=== PATIENT | female | born 1970 | race Caucasian/White ===

== ENCOUNTER → 2017-01-09 | Outpatient (REF) | payer BC ==
[2017-01-09 14:36] LABS: FOLATE > 24.0 NG/ML (>5.4); VITAMIN B12 LEVEL 496 PG/ML (247-911)
[2017-01-09 14:41] LABS: TOTAL PROTEIN 7.2 GM/DL (6.4-8.2)
[2017-01-11 10:50] LABS: ALBUMIN 4.24 GM/DL (3.29-5.55); ALBUMIN % 58.9 % (55.8-66.1); GAMMA GLOBULIN % 16.1 % (11.1-18.8)
[2017-01-12 08:09] LABS: Lyme Disease IgG/IgM Antibodie <0.91 ISR (0.00-0.90); Lyme Disease IgM Ab Quantitati <0.80 index (0.00-0.79); VITAMIN E LEVEL 12.8 mg/L (5.3-16.8)
== END ==
LOC: M LABNEURO 10:19
PROVIDERS: ATTEND Psychiatry & Neurology Neurology
DX: G62.9 Polyneuropathy, unspecified (principal)

== ENCOUNTER → 2017-01-12 | Outpatient (CLI) | payer BC ==
--- NOTE | 2017-01-12 17:37 | REPMRS ---
Patient History The patient states she had a clinical breast exam in Patient is nulliparous. Family history of colorectal cancer in maternal grandfather at age 50 or over. Benign stereotatic breast biopsy of the right breast, December 14, 2010. Digital Woman Screen Mammo: January 12, 2017 - Exam #: [id number] Bilateral CC and MLO view(s) were taken. Technologist: Mattie Ramirez, Technologist Prior study comparison: December 27, 2015, digital woman screen mammo performed at [facility]. December 25, 2014, digital woman screen mammo performed at [facility]. FINDINGS: The breast tissue is heterogeneously dense. This may lower the sensitivity of mammography. There has been no change in the appearance of the mammogram from the prior studies. There is a moderate amount of residual fibroglandular tissue which is fairly symmetric. There is no interval development of dominant mass, areas of architectural distortion, or clustered microcalcification typical of malignancy. ASSESSMENT: BI-RADS/ACR category 1 mammogram. Negative. Recommendation Routine screening mammogram in 1 year (for women over age 40). This mammogram was interpreted with the aid of an FDA-approved computer-aided dectection system. Electronically Signed By: Ismael Collins MD 01/12/17 [id number]
== END ==
LOC: M WHC 15:12
PROVIDERS: ATTEND Nurse Practitioner Family
DX: Z12.31 Encounter for screening mammogram for malignant neoplasm of breast (principal)

== ENCOUNTER → 2018-04-04 | Outpatient (CLI) | payer BC | LOC: M WHC 15:03 | DX: Z12.31 Encounter for screening mammogram for malignant neoplasm of breast (principal) | CPT/HCPCS: 77067 ==

== ENCOUNTER → 2020-02-17 | Outpatient (CLI) | payer BC ==
[2020-02-17 13:24] LABS: INFLUENZA A AMPLIFICATION NEGATIVE (NEGATIVE); INFLUENZA B AMPLIFICATION NEGATIVE (NEGATIVE)
== END ==
LOC: M LABSMTC 11:19
PROVIDERS: ATTEND Family Medicine
DX: Z11.59 Encounter for screening for other viral diseases (principal); Z20.828 Contact with and (suspected) exposure to other viral communicable diseases
CPT/HCPCS: 87502; U0002

== ENCOUNTER → 2020-03-04 | Outpatient (CLI) | payer BC | LOC: M LABSMTC 13:47 | PROVIDERS: ATTEND Family Medicine | DX: Z11.59 Encounter for screening for other viral diseases (principal); Z20.828 Contact with and (suspected) exposure to other viral communicable diseases ==

== ENCOUNTER → 2020-03-23 | Outpatient (REF) | payer BC ==
[2020-03-23 15:14] LABS: C REACTIVE PROTEIN QUANTITATIV < 0.30 MG/DL (0.00-0.30); RHEUMATOID FACTOR QUANT < 10.0 IU/ML (<15.0)
[2020-03-23 15:18] LABS: BASO # 0.1 10^3/uL (0.0-0.2); BASO % 0.7 % (0.0-1.0); EOS # 0.3 10^3/uL (0.0-0.5); EOS % 4.1 % (0.0-3.0); HEMATOCRIT 44.6 % (36.0-47.0); HEMOGLOBIN 14.4 g/dl (12.0-15.5); LYMPH # 2.3 10^3/uL (1.5-5.0); LYMPH % 32.8 % (24.0-44.0); MEAN CORPUSCULAR HEMOGLOBIN 30.3 pg (27.0-33.0); MEAN CORPUSCULAR HGB CONC 32.3 g/dl (32.0-36.5); MEAN CORPUSCULAR VOLUME 93.7 fl (80.0-96.0); MONO # 0.5 10^3/uL (0.0-0.8); MONO % 6.7 % (0.0-5.0); NEUTROPHILS # 3.8 10^3/uL (1.5-8.5); NEUTROPHILS % 55.4 % (36.0-66.0); PLATELET COUNT, AUTOMATED 283 10^3/uL (150-450); RED BLOOD COUNT 4.76 10^6/uL (4.00-5.40); WHITE BLOOD COUNT 6.9 10^3/uL (4.0-10.0)
[2020-03-23 16:08] LABS: ERYTHROCYTE SEDIMENTATION RATE 7 mm/hr (0-30)
[2020-03-25 06:50] LABS: ANA (HEP2) Negative (.); CYCLIC CITRULLINATED PEPTIDE 10 units (0-19); SSA SJOGRENS A <0.2 AI (0.0-0.9); SSB SJOGRENS B 0.8 AI (0.0-0.9)
== END ==
LOC: M SFHCPLAZ 12:42
PROVIDERS: ATTEND Internal Medicine Infectious Disease
DX: R50.9 Fever, unspecified (principal); M25.50 Pain in unspecified joint

== ENCOUNTER → 2020-03-30 | Outpatient (REF) | payer BC ==
[2020-03-30 13:50] LABS: APPEARANCE, URINE CLEAR (CLEAR); BACTERIA, URINE AUTO NEGATIVE (NEGATIVE); BILIRUBIN, URINE AUTO NEGATIVE (NEGATIVE); BLOOD, URINE BLOOD NEGATIVE (NEGATIVE); COLOR, URINE STRAW (YELLOW); GLUCOSE, URINE (UA) AUTO NEGATIVE (NEGATIVE); KETONE, URINE AUTO NEGATIVE (NEGATIVE); LEUKOCYTE ESTERASE, URINE AUTO NEGATIVE (NEGATIVE); NITRITE, URINE AUTO NEGATIVE (NEGATIVE); PROTEIN, URINE AUTO NEGATIVE (NEGATIVE); RBC, URINE AUTO 0 /HPF (0-3); SPECIFIC GRAVITY URINE AUTO 1.008 (1.002-1.035); SQUAMOUS EPITHELIAL CELL UR AU 0 /HPF (0-6); UROBILINOGEN, URINE AUTO 0.2 mg/dL (0.0-2.0); WBC, URINE AUTO 0 /HPF (0-3)
== END ==
LOC: M SFHCPLAZ 11:55
PROVIDERS: ATTEND Internal Medicine Infectious Disease
DX: R50.9 Fever, unspecified (principal); R10.84 Generalized abdominal pain

== ENCOUNTER → 2020-04-05 | Outpatient (CLI) | payer BC ==
[~2020-04-05] MED LIST: GASTROGRAFIN SOLUTION 30ML (Q9963) As Ordered ONE; ISOVUE-370 76% 100ML VIAL As Ordered ONE
--- NOTE | 2020-04-08 06:49 | REP ---
Clinical: Abdominal pain with fever of unknown origin. Comparison: 08/18/2011. Technique: Axial contrast enhanced images from the lung bases to the pubic symphysis using oral (per protocol) and 100 ml Isovue 370 intravenous contrast material along with coronal and sagittal re-formations. Precontrast and delayed images of the abdomen obtained. Findings: 3-mm nodule in the right lower lobe (image 1) cannot be excluded. Visualized portions of the heart and pericardium are normal. Scattered hepatic hypodensities compatible with cysts measure up to 1.4 cm and remains stable. Spleen, pancreas, gallbladder, bilateral adrenal glands and kidneys are normal. The enteric system is without obstruction or acute inflammatory process. Scattered colonic diverticula noted without acute diverticulitis. Pelvis demonstrates normal bladder and age-appropriate uterus/adnexa. No ascites. No free air. No adenopathy. Abdominal aorta without aneurysm or dissection. Surrounding musculoskeletal structures without acute osseous abnormality. Impression: 1. 3 mm noncalcified nodule in the posterior right lower lobe appears to be stable compared to 2011 although follow-up may be warranted as surrounding atelectasis on prior examination makes direct comparison difficult. 2. Relatively stable hepatic hypodensities compatible with simple cysts. 3. Few scattered colonic diverticula without acute diverticulitis. 4. No further acute abdominopelvic pathology appreciated. Electronically Signed by Angelo Roca MD 04/08/2020 06:41 A
== END ==
LOC: M RAD 12:56
PROVIDERS: ATTEND Internal Medicine Infectious Disease
DX: R91.1 Solitary pulmonary nodule (principal); K76.89 Other specified diseases of liver; K57.30 Diverticulosis of large intestine without perforation or abscess without bleeding; R50.9 Fever, unspecified; R10.84 Generalized abdominal pain
CPT/HCPCS: 74178; Q9963; Q9967

== ENCOUNTER → 2020-05-31 | Outpatient (CLI) | payer BC ==
--- NOTE | 2020-05-31 15:48 | REPMRS ---
Patient History The patient states she had a clinical breast exam in May 2020. Family history of colorectal cancer at age 50 or over in maternal grandfather. Benign stereotatic breast biopsy of the right breast, December 14, 2010. 3D TOMOSYNTHESIS WAS PERFORMED. The Timmy Kirkland lifetime risk for breast cancer is 12.2.%. VOLPARA DENSITY B. Digital Woman Screen Mammo: May 31, 2020 - Exam #: [id number] Bilateral CC and MLO view(s) were taken. Technologist: Marita Jha, Technologist Prior study comparison: April 15, 2019, bilateral digital woman screen mammo performed at [facility]. April 04, 2018, digital woman screen mammo performed at [facility]. FINDINGS: The breast tissue is heterogeneously dense. This may lower the sensitivity of mammography. There has been no change in the appearance of the mammogram from the prior studies. There is a moderate amount of residual fibroglandular tissue which is fairly symmetric. There is no interval development of dominant mass, areas of architectural distortion, or clustered microcalcification typical of malignancy. Assessment: BI-RADS/ACR category 1 mammogram. Negative Mammogram. Recommendation Routine screening mammogram in 1 year (for women over age 40). This mammogram was interpreted with the aid of an FDA-approved computer-aided dectection system. Electronically Signed By: Ismael Collins MD 05/31/20 [id number]
== END ==
LOC: M WHC 14:03
PROVIDERS: ATTEND Nurse Practitioner Family
DX: Z12.31 Encounter for screening mammogram for malignant neoplasm of breast (principal)

== ENCOUNTER 2020-11-18 12:16 | Emergency (ER) | payer BC ==
[~2020-11-18] VITALS: Ht 165.1 cm; Wt 85.5 kg
[2020-11-18] MEDS ORDERED: FLUTISP NS (12:39)
[2020-11-18] MEDS ORDERED: ROSU20TA5 PO (12:39)
[2020-11-18] MEDS ORDERED: ADV100INH INH (12:39)
--- NOTE | 2020-11-18 13:45 | REP ---
INDICATION: chest pain COMPARISON: 03/03/2020 TECHNIQUE: PA and lateral. FINDINGS: The mediastinum and cardiac silhouette are normal. The lung galloway are clear and without acute consolidation, effusion, or pneumothorax. The skeletal structures are intact and normal. IMPRESSION: No acute cardiopulmonary process. <Electronically signed by Angelo Roca > 11/18/20 [id number]
[2020-11-18 14:26] LABS: BASO % 0.4 % (0.0-1.0); EOS # 0.3 10^3/uL (0.0-0.5); EOS % 2.9 % (0.0-3.0); HEMATOCRIT 47.4 % (36.0-47.0); HEMOGLOBIN 15.3 g/dl (12.0-15.5); LYMPH # 2.1 10^3/uL (1.5-5.0); LYMPH % 22.3 % (24.0-44.0); MEAN CORPUSCULAR HEMOGLOBIN 30.8 pg (27.0-33.0); MEAN CORPUSCULAR HGB CONC 32.3 g/dl (32.0-36.5); MEAN CORPUSCULAR VOLUME 95.6 fl (80.0-96.0); MONO # 0.6 10^3/uL (0.0-0.8); MONO % 6.7 % (0.0-5.0); NEUTROPHILS # 6.3 10^3/uL (1.5-8.5); NEUTROPHILS % 67.4 % (36.0-66.0); PLATELET COUNT, AUTOMATED 242 10^3/uL (150-450); RED BLOOD COUNT 4.96 10^6/uL (4.00-5.40); WHITE BLOOD COUNT 9.4 10^3/uL (4.0-10.0)
[2020-11-18 14:38] LABS: INR 0.92; PROTHROMBIN TIME 12.6 SECONDS (12.5-14.3)
[2020-11-18 14:39] LABS: PARTIAL THROMBOPLASTIN TIME 25.9 SECONDS (24.2-38.5)
[2020-11-18 14:52] LABS: ALBUMIN 4.3 GM/DL (3.2-5.2); ALT/SGPT 25 U/L (12-78); BILIRUBIN,DIRECT < 0.1 MG/DL (0.0-0.2); BILIRUBIN,TOTAL 0.3 MG/DL (0.2-1.0); LIPASE 160 U/L (73-393); TOTAL PROTEIN 7.8 GM/DL (6.4-8.2)
[2020-11-18 14:53] LABS: BLOOD UREA NITROGEN 23 MG/DL (7-18); CALCIUM LEVEL 9.7 MG/DL (8.5-10.1); CARBON DIOXIDE LEVEL 29 MEQ/L (21-32); CHLORIDE LEVEL 108 MEQ/L (98-107); CK-MB VALUE MASS 1.4 NG/ML (<3.6); CPK CREATINE PHOSPHOKINASE 56 U/L (26-192); CREATININE FOR GFR 0.86 MG/DL (0.55-1.30); GLOMERULAR FILTRATION RATE > 60.0 (>51); GLUCOSE, FASTING 96 MG/DL (70-100); POTASSIUM SERUM 4.5 MEQ/L (3.5-5.1); SODIUM LEVEL 143 MEQ/L (136-145); TROPONIN I < 0.02 NG/ML (< 0.10)
[2020-11-18] MEDS ORDERED: ISOVUE-370 76% 100ML VIAL As Ordered ONE (15:48)
--- NOTE | 2020-11-18 16:14 | REP ---
INDICATION: chest pain, pleuritic COMPARISON: None. TECHNIQUE: Axial contrast enhanced images from the thoracic inlet to the upper abdomen using pulmonary embolus technique with multiplanar re-formations. 75 ml Isovue 370 intravenous contrast material administered without complication. This CT examination was performed using the following dose reduction techniques: Automated exposure control, adjustment of mA and/or kv according to the patient's size, and use of iterative reconstruction technique. FINDINGS: Satisfactory enhancement of the pulmonary vasculature is achieved and no filling defects are identified to suggest pulmonary embolus. Further evaluation of the mediastinum demonstrates normal thoracic aorta, heart and pericardium. The bilateral lung galloway are well aerated and clear without consolidation pleural effusion or pneumothorax. Tracheobronchial tree is patent. No nodule or mass lesion is identified. No adenopathy noted. Surrounding musculoskeletal structures intact IMPRESSION: No evidence for pulmonary embolus. No acute mediastinal or pleural parenchymal process. <Electronically signed by Angelo Roca > 11/18/20 1824
[2020-11-18] MEDS ORDERED: ASPIRIN 81 MG CHEW TABLET PO ONE (16:30)
[2020-11-18 19:19] LABS: CK-MB VALUE MASS 1.6 NG/ML (<3.6); CPK CREATINE PHOSPHOKINASE 46 U/L (26-192); MB/CK RELATIVE INDEX 3.48 (< OR =4); TROPONIN I < 0.02 NG/ML (< 0.10)
[2020-11-18] MEDS ORDERED: ASPI81CH33 PO (19:46)
[2020-11-18 20:01] VITALS: BP 146/82
--- NOTE | 2020-11-19 07:37 | ECGEPIP ---
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
--- NOTE | 2020-11-19 07:43 | ECGEPIP ---
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
== END 2020-11-18 20:04 | disposition home or self-care (01) ==
LOC: M ED 12:16
DX: R07.89 Other chest pain (principal); E78.5 Hyperlipidemia, unspecified; J45.909 Unspecified asthma, uncomplicated; Z79.82 Long term (current) use of aspirin; Z79.899 Other long term (current) drug therapy
CPT/HCPCS: 36415; 71046; 71275; 80048; 80076; 81001; 82550; 82553; 83690; 84484; 85025; 85610; 85730; 93005; 93041; 94760; 99285; Q9967

== ENCOUNTER 2021-03-11 03:03 | Emergency (ER) | payer BC ==
[~2021-03-11] VITALS: Ht 175.3 cm; Wt 84.2 kg
[~2021-03-11 03:03] MED LIST changes: +ADV100INH INH; +ASPI81CH33 PO; +FLUTISP NS; -GASTROGRAFIN SOLUTION 30ML (Q9963) As Ordered ONE; -ISOVUE-370 76% 100ML VIAL As Ordered ONE; +ROSU20TA5 PO
[2021-03-11 03:56] LABS: BASO % 0.3 % (0.0-1.0); EOS # 0.2 10^3/uL (0.0-0.5); EOS % 1.6 % (0.0-3.0); HEMATOCRIT 45.9 % (36.0-47.0); HEMOGLOBIN 14.6 g/dl (12.0-15.5); LYMPH # 2.2 10^3/uL (1.5-5.0); MEAN CORPUSCULAR HEMOGLOBIN 30.3 pg (27.0-33.0); MEAN CORPUSCULAR HGB CONC 31.8 g/dl (32.0-36.5); MEAN CORPUSCULAR VOLUME 95.2 fl (80.0-96.0); MONO % 8.4 % (2.0-8.0); NEUTROPHILS # 8.1 10^3/uL (1.5-8.5); NEUTROPHILS % 70.3 % (36.0-66.0); PLATELET COUNT, AUTOMATED 232 10^3/uL (150-450); RED BLOOD COUNT 4.82 10^6/uL (4.00-5.40); WHITE BLOOD COUNT 11.5 10^3/uL (4.0-10.0)
[2021-03-11 04:14] LABS: ALBUMIN 4.2 GM/DL (3.2-5.2); ALT/SGPT 22 U/L (12-78); BILIRUBIN,DIRECT 0.2 MG/DL (0.0-0.2); BILIRUBIN,TOTAL 0.6 MG/DL (0.2-1.0); BLOOD UREA NITROGEN 24 MG/DL (7-18); CALCIUM LEVEL 9.7 MG/DL (8.5-10.1); CARBON DIOXIDE LEVEL 28 MEQ/L (21-32); CHLORIDE LEVEL 107 MEQ/L (98-107); CREATININE FOR GFR 0.78 MG/DL (0.55-1.30); GLOMERULAR FILTRATION RATE > 60.0 (>51); GLUCOSE, FASTING 89 MG/DL (70-100); LIPASE 140 U/L (73-393); POTASSIUM SERUM 3.9 MEQ/L (3.5-5.1); SODIUM LEVEL 141 MEQ/L (136-145); TOTAL PROTEIN 7.6 GM/DL (6.4-8.2)
[2021-03-11] MEDS: GASTROGRAFIN SOLUTION 30ML PO SCH ×2 (05:34→06:12)
[2021-03-11] MEDS ORDERED: ISOVUE-370 76% 100ML VIAL As Ordered ONE (06:41)
--- NOTE | 2021-03-11 07:30 | REPVR ---
PROCEDURE INFORMATION: Exam: CT Abdomen And Pelvis With Contrast Exam date and time: 03/11/2021 4:51 AM Age: 50 years old Clinical indication: Abdominal pain; Localized; Left lower quadrant (llq); Additional info: Llq pain TECHNIQUE: Imaging protocol: Computed tomography of the abdomen and pelvis with contrast. Radiation optimization: All CT scans at this facility use at least one of these dose optimization techniques: automated exposure control; mA and/or kV adjustment per patient size (includes targeted exams where dose is matched to clinical indication); or iterative reconstruction. Contrast material: ISO; Contrast volume: 100 ml; Contrast route: INTRAVENOUS (IV); COMPARISON: CT ABD PELVIS W/O FOL BY WIT 04/05/2020 2:48 PM FINDINGS: Lungs: Interstitial prominence and trace dependent airspace disease. Stable 1 mm right lower lobe and 3 mm left lower lobe nodules. For patients at low risk (minimal or absent history of smoking and of other known risk factors), no routine follow-up is indicated. For patients at high risk (history of smoking or of other known risk factors), consider optional CT Chest at 12 months. (Reference: Jyoti). Liver: Stable hepatic cysts, including a 13 mm cyst in the left hepatic lobe. Gallbladder and bile ducts: No cholelithiasis or biliary ductal dilatation. Pancreas: No pancreatic mass or ductal dilatation. Spleen: No splenomegaly. Adrenal glands: Subtle stable left adrenal nodularity. Kidneys and ureters: Normal renal morphology. No hydronephrosis. Stomach and bowel: Wall thickening in the nondistended stomach. Scattered small bowel and colonic air-fluid levels. Colonic diverticula and prominent stool. Prominent wall thickening , infiltration of pericolonic fat, pericolonic fluid at the junction of the distal descending and sigmoid colon. The differential diagnosis would include both diverticulitis and focal colitis. Appendix: No acute appendicitis. Intraperitoneal space: Small quantity of free fluid in the left lower quadrant. Vasculature: Normal caliber of the abdominal aorta. Lymph nodes: Subcentimeter lymph nodes. Urinary bladder: Bladder dilatation. Reproductive: 1.7 cm left ovarian cyst. Bones/joints: Degenerative change and disc bulging. Soft tissues: Small umbilical hernia. Subcutaneous calcification in the left lateral pelvis. IMPRESSION: 1. Prominent wall thickening, infiltration of pericolonic fat, and pericolonic fluid at the junction of the distal descending and sigmoid colon. The differential diagnosis would include both diverticulitis and focal colitis. 2. Wall thickening in the nondistended stomach. 3. Additional findings as described above. Electronically signed by: Deepak Ny On 03/11/2021 07:30:44 AM
[2021-03-11] MEDS ORDERED: metroNIDAZOLE (FLAGYL) 500MG TABLET PO ONE (08:35)
[2021-03-11] MEDS ORDERED: CIPROFLOXACIN 500MG TABLET PO ONE (08:35)
[2021-03-11] MEDS ORDERED: METR-265 PO (08:36)
[2021-03-11] MEDS ORDERED: CIPR-249 PO (08:36)
[2021-03-11 09:20] VITALS: BP 132/78
== END 2021-03-11 09:22 | disposition home or self-care (01) ==
LOC: M ED 03:03
DX: K57.32 Diverticulitis of large intestine without perforation or abscess without bleeding (principal); E78.5 Hyperlipidemia, unspecified; J45.909 Unspecified asthma, uncomplicated; R91.8 Other nonspecific abnormal finding of lung field; Z79.899 Other long term (current) drug therapy; Z88.8 Allergy status to other drugs, medicaments and biological substances
CPT/HCPCS: 36415; 74177; 80048; 80076; 81001; 83690; 85025; 93041; 99284; Q9963; Q9967

== ENCOUNTER → 2021-06-02 | Outpatient (CLI) | payer BC ==
[~2021-06-02] MED LIST changes: +CIPR-249 PO; +METR-265 PO
== END ==
LOC: M WHC 13:54
PROVIDERS: ATTEND Advanced Practice Midwife
DX: Z12.31 Encounter for screening mammogram for malignant neoplasm of breast (principal)

== ENCOUNTER → 2021-07-25 | Outpatient (CLI) | payer BC | LOC: M LABSMTC 09:35 | PROVIDERS: ATTEND Nurse Practitioner | DX: Z20.822 Contact with and (suspected) exposure to COVID-19 (principal) ==

== ENCOUNTER → 2022-08-02 | Outpatient (REF) | payer BC | LOC: M LAB REF 13:32 | PROVIDERS: ATTEND Otolaryngology | DX: R22.1 Localized swelling, mass and lump, neck (principal) ==

== ENCOUNTER → 2022-09-13 | Outpatient (CLI) | payer BC | LOC: M WHC 15:10 | PROVIDERS: ATTEND Specialist | DX: Z12.31 Encounter for screening mammogram for malignant neoplasm of breast (principal) ==

== ENCOUNTER → 2022-09-13 | Outpatient (REF) | payer BC | LOC: M SFHCDERM 16:54 | PROVIDERS: ATTEND Specialist | DX: Z12.4 Encounter for screening for malignant neoplasm of cervix (principal) | CPT/HCPCS: 87624; G0123 ==

== ENCOUNTER → 2023-12-19 | Outpatient (REF) | payer BC ==
[~2023-12-19] MED LIST changes: -ROSU20TA5 PO; +ROSU20TA61 PO
== END ==
LOC: M SFHCWAGY 17:34
PROVIDERS: ATTEND Specialist
DX: Z01.419 Encounter for gynecological examination (general) (routine) without abnormal findings (principal)
CPT/HCPCS: 87624; G0123

== ENCOUNTER → 2023-12-19 | Outpatient (CLI) | payer BC | LOC: M WHC 15:00 | PROVIDERS: ATTEND Specialist | DX: Z12.31 Encounter for screening mammogram for malignant neoplasm of breast (principal) ==

== ENCOUNTER → 2025-03-12 | Outpatient (CLI) | payer BC ==
[~2025-03-12] MED LIST changes: -ADV100INH INH; +ADVA1AER8 INH; +BETA5OI TOP; +CAPE1TAB2 PO; +ONDA-84 PO; +PANT40TA29 PO; +PROC10TA5 PO; +PYRI100L PO; -ROSU20TA61 PO; +ROSU20TA86 PO
== END ==
LOC: M WHC 08:54
PROVIDERS: ATTEND Specialist
DX: Z12.31 Encounter for screening mammogram for malignant neoplasm of breast (principal)

== ENCOUNTER → 2025-06-23 | Outpatient (CLI) | payer BC | LOC: M PLALAB 16:37 | PROVIDERS: ATTEND Specialist | DX: Z08 Encounter for follow-up examination after completed treatment for malignant neoplasm (principal); C56.9 Malignant neoplasm of unspecified ovary ==

== ENCOUNTER → 2025-09-24 | Outpatient (REF) | payer BC | LOC: M SFHCWAGY 13:00 | PROVIDERS: ATTEND Specialist | DX: C56.9 Malignant neoplasm of unspecified ovary (principal) | CPT/HCPCS: 87624; G0123 ==